=== PATIENT | male | born 1955 ===

== ENCOUNTER 2021-03-25 16:56 | Outpatient (REF) | payer MEDICARE, SELFPAY ==
[2021-03-25 21:29] LABS: BUN 14 mg/dL (7-18); CREATININE 0.9 mg/dL (0.70-1.30); Calcium 9.1 mg/dL (8.5-10.1); Calculated LDL 115 mg/dL (<100); Chloride 105 mmol/L (98-107); Cholesterol 199 mg/dL (<200); Glucose 111 mg/dL (74-106); HDL Cholesterol 57 mg/dL (40-60); Potassium 4.2 mmol/L (3.5-5.1); Sodium 143 mmol/L (136-145); TSH (W/Ref FT4) 1.42 uIU/mL (0.36-3.74); Triglyceride 137 mg/dL (<150)
== END 2021-03-25 16:57 | disposition home or self-care (01) ==
LOC: NCHCN 16:56
PROVIDERS: Visit Provider Family Medicine
DX: I10 Essential (primary) hypertension (principal); Z00.00 Encounter for general adult medical examination without abnormal findings
CPT/HCPCS: 80048; 80061; 84443